=== PATIENT | male | born 1930 | race Caucasian/White ===

== ENCOUNTER 2016-11-24 00:51 | Emergency (ER) | payer MEDICARE ==
[~2016-11-24] VITALS: Ht 167.6 cm; Wt 72.6 kg
[~2016-11-24 00:51] MED LIST: AMIODARONE HCL400 MG PO; ASPIRINEC PO; CORDARONE200 M1 PO; COUMADIN2.5 MG PO; COUMADIN5 MG PO; DIOVAN160 MG PO; FLEXERIL10 MG PO; HYDROCHLOROTHIA25 MG PO; K-DUR10 MEQ PO; METOPROLOL SUCC25 MG PO; METOPROLOL TAR25 MG PO; NIASPAN1000 MG PO; SIMVASTATIN40 MG PO
[2016-11-24 02:07] LABS: BASOPHIL% 0.9 % (0-2.5); EOSINOPHIL# 0.4 X10e3 (0-0.7); EOSINOPHIL% 7.9 % (0.0-7.0); HEMATOCRIT 46.2 % (38.0-50.0); HEMOGLOBIN 15.5 gm/dL (13.0-16.0); LYMPHOCYTE# 0.8 X10e3 (1.0-3.5); LYMPHOCYTE% 16.7 % (17.0-45.0); MEAN CELL VOLUME 99.4 FL (83-96); MEAN CORPUSCULAR HEMOGLOBIN 33.4 PG (28-34); MEAN CORPUSCULAR HGB CONC 33.6 g/dL (30-36); MEAN PLATELET VOLUME 8.8 FL (6.5-11.5); MONOCYTE# 0.7 X10e3 (0-1.0); MONOCYTE% 14.5 % (3.0-12.0); NEUTROPHIL# 2.8 X10e3 (1.5-7.1); PLATELET COUNT 117 X10e3 (140-420); RED BLOOD COUNT 4.65 X10e (3.90-5.60); RED CELL DISTRIBUTION WIDTH 14.5 % (11.0-15.5); WHITE BLOOD COUNT 4.7 X10e3 (4.0-10.5)
[2016-11-24 02:08] LABS: DIFF IND NO
[2016-11-24 02:21] LABS: INR 1.8; PARTIAL THROMBOPLASTIN TIME 30.8 SECONDS (23.5-31.3); PROTHROMBIN TIME (PATIENT) 20.1 SECONDS (10.0-11.7)
== END 2016-11-24 03:28 | disposition home or self-care (01) ==
LOC: CED 00:51
PROVIDERS: Nurse Practitioner
DX: S01.512A Laceration without foreign body of oral cavity, initial encounter (principal); I10 Essential (primary) hypertension; E78.5 Hyperlipidemia, unspecified; F17.290 Nicotine dependence, other tobacco product, uncomplicated; W45.8XXA Other foreign body or object entering through skin, initial encounter
CPT/HCPCS: 36415; 85025; 85610; 85730; 99283